=== PATIENT | female | born 1965 | race Caucasian/White ===

== ENCOUNTER → 2021-01-26 | Outpatient (CLI) | payer OTHER ==
[~2021-01-26] MED LIST: ALBUTEROL1.25 MG/3 INH; ALLEGRA ALLERG180 MG PO; ASPIRIN CHEWABL81 MG PO; BACLOFEN20 MG PO; CYANOCOBAL1000 MCG/1 INJ; CYCLOBENZAPRINE10 MG PO; DITROPAN 5 MG TA5 MG PO; FLONASE 0.05% N16 GM; IBUPROFEN600 MG PO; K-DUR TAB 10 M10 MEQ PO; LASIX 40 MG TAB40 MG PO; LINZESS290 MCG PO; LIPITOR TAB 1010 MG PO; LOPRESSOR 25 MG25 MG PO; LYRICA200 MG PO; NORCO 10-325 T1 EACH PO; OMEPRAZOLE40 MG PO; PERCOCET 5-3251 EACH PO; SYMBICORT 160-1 INHA INH; TYLENOL 500 MG500 MG PO; VALIUM2 MG PO; VENLAFAXINE HC150 MG PO; VENTOLIN HFA 66.7 GM INH; VITAMIN D21250 MCG PO; VOLTAREN ARTHRI20 GM TOP; VOLTAREN EC 7575 MG PO; WELLBUTRIN SR150 M1 PO; WIXELA 250-501 EACH INH; ZESTRIL/PRINIVI10 MG PO
== END ==
LOC: MAMO 10:23
DX: R92.8 Other abnormal and inconclusive findings on diagnostic imaging of breast (principal)
CPT/HCPCS: 77066; G0279

== ENCOUNTER → 2021-03-09 | Outpatient (CLI) | payer OTHER | LOC: KOH-I 09:00 | DX: M51.26 Other intervertebral disc displacement, lumbar region (principal); M51.27 Other intervertebral disc displacement, lumbosacral region; M48.061 Spinal stenosis, lumbar region without neurogenic claudication; G62.9 Polyneuropathy, unspecified; M48.07 Spinal stenosis, lumbosacral region | CPT/HCPCS: 72148 ==